=== PATIENT | male | born 1950 | race Caucasian/White ===

== ENCOUNTER 2021-12-20 13:57 | Emergency (ER) | payer MEDICARE, OTHER ==
[~2021-12-20 13:57] MED LIST: ALTACE10 MG PO; ALTACE5 MG PO; AMARYL2 MG PO; ASPIR 8181 MG PO; BUSPIRONE HCL7.5 MG PO; CARBIDOPA-LEVO1 EAC6 PO; CITALOPRAM 40MG40 MG PO; CRESTOR40 MG PO; FOLBIC RF TABL1 EACH PO; ISOSORBIDE MONO60 MG PO; MEMANTINE HCL E14 MG PO; METFORMIN HCL500 MG PO; NORVASC5 MG PO; PLAVIX75 MG PO; PROSCAR5 MG PO; PROTONIX 40MG T40 MG PO; VOLTAREN **OUT75 MG PO
[2021-12-20 15:28] LABS: BASOPHIL 0.4 % (0-2); EOSINOPHIL 1.4 % (0-7); HCT 37.3 % (42.0-52.0); HGB 12.1 g/dl (13.2-18.0); LYMPHOCYTE 9.5 % (15-48); MCH 30.5 pg (25.0-31.0); MCHC 32.4 g/dL (32.0-36.0); MONOCYTE 8.2 % (0-12); MPV 10.5 fL (6.0-9.5); NEUTROPHIL 80.1 % (41-80); NRBC 0; PLT 179 K/uL (150-400); RBC 3.97 M/uL (4.70-6.00); RDW 14.6 % (11.5-14.0); WBC 14.6 K/uL (4.0-10.5)
[2021-12-20 15:44] LABS: BUN/CREAT RATIO (CALC) 19.1 RATIO; CREATININE 1.57 mg/dL (0.67-1.17); POTASSIUM 3.8 mmol/L (3.5-5.1)
[2021-12-20 17:03] LABS: BILIRUBIN NEGATIVE (NEGATIVE); BLOOD NEGATIVE Ery/uL (NEGATIVE); CLARITY CLEAR (CLEAR); COLOR YELLOW (YELLOW); GLUCOSE (U) NORMAL (NORMAL); LEUKOCYTES NEGATIVE Leu/uL (NEGATIVE); NITRITE NEGATIVE (NEGATIVE); PROTEIN NEGATIVE (NEGATIVE); SPECIFIC GRAVITY 1.015 (1.001-1.030); UROBILINOGEN 0.2 mg/dL (0.2-1.0); pH 5.5 (5.0-9.0)
[2021-12-20 17:30] LABS: LACTIC ACID 1.4 mmol/L (0.4-1.9)
[2021-12-20] MEDS ORDERED: SENNA PLUS 8.61 EACH PO (19:22)
[2021-12-20] MEDS ORDERED: MIRALAX 238GM238 GM PO (19:22)
== END 2021-12-20 19:50 | disposition home or self-care (01) ==
LOC: FER 13:57
PROVIDERS: Emergency Medicine
DX: K59.00 Constipation, unspecified (principal); K62.89 Other specified diseases of anus and rectum; E11.9 Type 2 diabetes mellitus without complications
CPT/HCPCS: 36415; 74022; 80048; 81003; 83605; 85025; 87040; J7030